=== PATIENT | male | born 1955 | race Caucasian/White ===

== ENCOUNTER 2021-02-08 20:26 | Emergency (ER) | payer BC ==
[~2021-02-08] VITALS: Ht 182.9 cm; Wt 90.9 kg
[2021-02-08] MEDS ORDERED: normal saline 1000ML IV soln IVB ONE (20:30)
[2021-02-08] MEDS ORDERED: ondansetron/PF 4mg/2ml inj IV ONE (20:30)
[2021-02-08 20:50] LABS: BASOPHILS % (AUTO) 0.6 % (0-1); EOSINOPHILS % (AUTO) 0.6 % (0-6); HEMATOCRIT 46.5 % (42.0-52.0); HEMOGLOBIN 16.2 g/dl (14.0-17.9); LYMPHOCYTES # (AUTO) 1.9 X10'3 (1.1-4.8); LYMPHOCYTES % (AUTO) 24.5 % (21-51); MEAN CORPUSCULAR HEMOGLOBIN 32.3 PG (27.0-31.0); MEAN CORPUSCULAR HGB CONC 34.7 g/dL (33.0-36.5); MEAN CORPUSCULAR VOLUME 92.9 FL (78-98); MEAN PLATELET VOLUME 6.7 FL (7.4-10.4); MONOCYTES # (AUTO) 0.9 X10'3 (0-0.9); MONOCYTES % (AUTO) 12.2 % (2-12); NEUTROPHILS # (AUTO) 4.8 X10'3 (1.8-7.7); NEUTROPHILS % (AUTO) 62.1 % (42-75); PLATELET COUNT 415 X10'3 (140-440); RED CELL DISTRIBUTION WIDTH 12.7 % (11.5-14.5); WHITE BLOOD COUNT 7.7 X10'3 (4.5-11.0)
[2021-02-08] MEDS ORDERED: diazepam inj 5 MG/ML inj. IV ONE (20:50)
[2021-02-08] MEDS ORDERED: methylPREDNISolone sod succ 125mg/2ml vial IV ONE (20:50)
[2021-02-08] MEDS ORDERED: valacyclovir 500mg tablet PO SCH (20:50)
[2021-02-08] MEDS ORDERED: VALA10002 PO (21:01)
[2021-02-08] MEDS ORDERED: PRED20TA PO (21:01)
[2021-02-08] MEDS ORDERED: DIAZ5TAB22 PO (21:01)
[2021-02-08] MEDS ORDERED: ONDA4TAB6 PO (21:01)
[2021-02-08 21:02] LABS: ALANINE AMINOTRANSFERASE 40 U/L (12-78); ALBUMIN 4.3 G/DL (3.4-5.0); ALBUMIN/GLOBULIN RATIO 0.9 (1.1-1.5); ALKALINE PHOSPHATASE 87 IU/L (46-116); ANION GAP 11 (8-16); ASPARTATE AMINO TRANSFERASE 26 U/L (10-37); BILIRUBIN,TOTAL 0.7 MG/DL (0.1-1.0); BLOOD UREA NITROGEN 18 MG/DL (7-18); BUN/CREATININE RATIO 12.2 (5.4-32.0); CALCIUM 8.9 MG/DL (8.5-10.1); CHLORIDE 98 MMOL/L (99-107); CREATININE 1.48 MG/DL (0.60-1.10); GLUCOSE 134 MG/DL (70-104); SODIUM 135 MMOL/L (135-145); TOTAL CARBON DIOXIDE 26.3 MMOL/L (24-32); eGFR 47 ML/MIN
[2021-02-08 21:46] VITALS: BP 108/73
== END 2021-02-08 21:48 | disposition home or self-care (01) ==
LOC: ER 20:27
DX: B02.9 Zoster without complications (principal); H83.01 Labyrinthitis, right ear; E86.0 Dehydration; R11.0 Nausea; Z88.0 Allergy status to penicillin; Z79.899 Other long term (current) drug therapy
CPT/HCPCS: 36415; 80053; 85025; 96361; 96374; 96375; 99284; J2405; J2930; J3360; J7030